=== PATIENT | male | born 1960 | race Caucasian/White ===

== ENCOUNTER → 2016-06-11 | Outpatient (CLI) | payer OTHER ==
[2016-06-11 11:18] LABS: HEMOGLOBIN 12.1 gm/dl (14.0-17.5); RED BLOOD COUNT 3.73 M/UL (4.20-5.50); WHITE BLOOD COUNT 6.1 K/UL (4.5-11.0)
[2016-06-11 11:35] LABS: BUN/CREATININE RATIO 12 (0-10)
== END ==
LOC: LAB 10:37
PROVIDERS: Internal Medicine Cardiovascular Disease
DX: L70.9 Acne, unspecified (principal); L73.2 Hidradenitis suppurativa; I25.10 Atherosclerotic heart disease of native coronary artery without angina pectoris
CPT/HCPCS: 36415; 80053; 80061; 82248; 85025; 85045

== ENCOUNTER → 2016-08-15 | Outpatient (CLI) | payer OTHER ==
[2016-08-15 10:21] LABS: HEMOGLOBIN 11.9 gm/dl (14.0-17.5); RED BLOOD COUNT 3.73 M/UL (4.20-5.50); WHITE BLOOD COUNT 6.2 K/UL (4.5-11.0)
== END ==
LOC: LAB 09:44
PROVIDERS: Dermatology
DX: L73.2 Hidradenitis suppurativa (principal)
CPT/HCPCS: 36415; 80076; 84153; 85027; 85045

== ENCOUNTER → 2020-06-04 | Outpatient (CLI) | payer OTHER ==
[~2020-06-04] MED LIST: ASPIRIN EC81 MG PO; ATORVASTATIN CA20 MG PO; COZAAR 50MG TAB50 MG PO; DAPSONE100 MG PO; DEXAMETHASONE1 MG PO; LEVAQUIN500 MG PO; LOPRESSOR 25 MG25 MG PO; NITROGLYCERIN0.4 MG SL; OMEPRAZOLE20 MG PO; PROTONIX40 M1 PO; VIAGRA50 MG PO
[2020-06-04 08:22] LABS: HEMOGLOBIN 12.6 gm/dl (14.0-17.5); RED BLOOD COUNT 3.97 M/UL (4.20-5.50); WHITE BLOOD COUNT 5.7 K/UL (4.5-11.0)
[2020-06-04 09:21] LABS: BUN/CREATININE RATIO 10 (0-10)
== END ==
LOC: LAB 07:39
PROVIDERS: Dermatology
DX: K76.9 Liver disease, unspecified (principal); R53.83 Other fatigue; R79.9 Abnormal finding of blood chemistry, unspecified; R63.4 Abnormal weight loss; E66.3 Overweight; Z79.899 Other long term (current) drug therapy
CPT/HCPCS: 36415; 80053; 80076; 85025; 85027; 85045

== ENCOUNTER → 2020-08-12 | Outpatient (CLI) | payer OTHER | LOC: KOH-I 13:05 | DX: F17.210 Nicotine dependence, cigarettes, uncomplicated (principal) | CPT/HCPCS: 71271 ==

== ENCOUNTER → 2020-09-07 | Outpatient (CLI) | payer OTHER ==
[2020-09-07 09:18] LABS: HEMOGLOBIN 13.2 gm/dl (14.0-17.5); RED BLOOD COUNT 3.96 M/UL (4.20-5.50)
[2020-09-07 09:39] LABS: BUN/CREATININE RATIO 11 (0-10)
== END ==
LOC: LAB 08:08
PROVIDERS: Dermatology
DX: K76.9 Liver disease, unspecified (principal); R53.83 Other fatigue; R63.4 Abnormal weight loss; Z79.899 Other long term (current) drug therapy
CPT/HCPCS: 36415; 80053; 85027; 85045

== ENCOUNTER → 2020-10-07 | Outpatient (CLI) | payer OTHER | LOC: HEART 5 08:53 | DX: R09.02 Hypoxemia (principal); Z87.891 Personal history of nicotine dependence | CPT/HCPCS: 94010 ==

== ENCOUNTER → 2020-12-17 | Outpatient (CLI) | payer OTHER ==
[2020-12-17 11:10] LABS: HEMOGLOBIN 12.3 gm/dl (14.0-17.5); RED BLOOD COUNT 3.7 M/UL (4.20-5.50); WHITE BLOOD COUNT 6.7 K/UL (4.5-11.0)
== END ==
LOC: LAB 10:48
PROVIDERS: Dermatology
DX: K76.9 Liver disease, unspecified (principal); R53.83 Other fatigue; R63.4 Abnormal weight loss; Z79.899 Other long term (current) drug therapy
CPT/HCPCS: 36415; 80053; 85025

== ENCOUNTER 2021-01-30 17:38 | Emergency (ER) | payer OTHER ==
[2021-01-30] MEDS ORDERED: CYCLOBENZAPRINE10 MG PO (19:06)
== END 2021-01-30 19:55 | disposition home or self-care (01) ==
LOC: ER1 17:38
DX: S43.401A Unspecified sprain of right shoulder joint, initial encounter (principal); S46.911A Strain of unspecified muscle, fascia and tendon at shoulder and upper arm level, right arm, initial encounter; S00.01XA Abrasion of scalp, initial encounter; R22.0 Localized swelling, mass and lump, head; I10 Essential (primary) hypertension; I25.2 Old myocardial infarction; Z79.82 Long term (current) use of aspirin; F17.290 Nicotine dependence, other tobacco product, uncomplicated; V43.52XA Car driver injured in collision with other type car in traffic accident, initial encounter
CPT/HCPCS: 73030; 99283

== ENCOUNTER → 2021-02-13 | Outpatient (CLI) | payer OTHER ==
[~2021-02-13] MED LIST changes: +CYCLOBENZAPRINE10 MG PO
== END ==
LOC: HEART 5 08:54
DX: I25.10 Atherosclerotic heart disease of native coronary artery without angina pectoris (principal); I51.7 Cardiomegaly; Z95.5 Presence of coronary angioplasty implant and graft
CPT/HCPCS: 78452; 93306; A9502; J2785

== ENCOUNTER 2021-03-17 09:47 | Inpatient (IN) | payer OTHER ==
[~2021-03-17] VITALS: Ht 172.7 cm; Wt 93.9 kg
[~2021-03-17 09:47] MED LIST changes: +VIAGRA100 MG PO; -VIAGRA50 MG PO
[2021-03-17 11:14] LABS: HEMOGLOBIN 11.6 gm/dl (14.0-17.5); RED BLOOD COUNT 3.62 M/UL (4.20-5.50); WHITE BLOOD COUNT 20.7 K/UL (4.5-11.0)
[2021-03-17 11:50] LABS: BUN/CREATININE RATIO 21 (0-10)
[2021-03-17] MEDS ORDERED: CYCLOBENZAPRINE10 MG PO (17:36)
[2021-03-17] MEDS ORDERED: FOLIC ACID1 MG PO (17:38)
[2021-03-18 06:53] LABS: WHITE BLOOD COUNT 18.6 K/UL (4.5-11.0)
[2021-03-18 06:56] LABS: HEMOGLOBIN 9.4 gm/dl (14.0-17.5)
--- NOTE | 2021-03-18 11:07 | NUR ---
DR ESPINOZA CALLED PT WHEEZING AND OXYGEN IS 88/89% ON 4 LITERS. NEW ORDERS NOTED WITH NEB TREATMENTS AND AN ORDER TO TITRATE OXYGEN TO MEET NEEDS.
[2021-03-18 12:18] LABS: BORDETELLA PARAPERTUSSIS Not Detected (Not Detectd); BORDETELLA PERTUSSIS Not Detected (Not Detectd); CHLAMYDIA PNEUMONIAE Not Detected (Not Detectd); CORONAVIRUS HKU1 Not Detected (Not Detectd); CORONAVIRUS NL63 Not Detected (Not Detectd); CORONAVIRUS OC43 Not Detected (Not Detectd); CORONOAVIRUS 229E Not Detected (Not Detectd); HUMAN RHINOVIRUS/ENTEROVIRUS Not Detected (Not Detectd); INFLUENZA A Not Detected (Not Detectd); INFLUENZA B Not Detected (Not Detectd); MYCOPLASMA PNEUMONIAE Not Detected (Not Detectd); PARAINFLUENZA VIRUS 1 Not Detected (Not Detectd); PARAINFLUENZA VIRUS 2 Not Detected (Not Detectd); PARAINFLUENZA VIRUS 3 Not Detected (Not Detectd); PARAINFLUENZA VIRUS 4 Not Detected (Not Detectd); RESPIRATORY SYNCYTIAL VIRUS Not Detected (Not Detectd)
[2021-03-18 13:50] LABS: HUMAN METAPNEUMOVIRUS DETECTED (Not Detectd); SARS-CoV-2 NOT DETECTED (Not Detectd)
--- NOTE | 2021-03-18 18:11 | NUR ---
PT HAS RESTED TODAY, HIS OXYGEN REMAINS GREATER THAN 92% ON 5L N/C.HE DENIES NEEDS OR C/O AT THSI TIME.
[2021-03-19 06:24] LABS: HEMOGLOBIN 9.2 gm/dl (14.0-17.5); RED BLOOD COUNT 3.01 M/UL (4.20-5.50)
[2021-03-20 06:39] LABS: HEMOGLOBIN 8.6 gm/dl (14.0-17.5); RED BLOOD COUNT 2.87 M/UL (4.20-5.50); WHITE BLOOD COUNT 18.5 K/UL (4.5-11.0)
[2021-03-21] MEDS ORDERED: BUDESONIDE0.5 MG/2 M NEB (11:33)
[2021-03-21] MEDS ORDERED: ALBUTEROL2.5 MG/3 M INH (11:33)
[2021-03-21] MEDS ORDERED: LEVOFLOXACIN500 MG PO (11:33)
[2021-03-21] MEDS ORDERED: PREDNISONE 10 M10 MG PO (11:33)
--- NOTE | 2021-03-21 12:35 | NUR ---
CONTACTED ABOUT BLOOD GAS RESULTS AT THIS TIME AND HE STATES THAT PATIENT WILL BE FINE WITHOUT HOME O2. HE STATES THAT PO2 MUST BE BELOW 55 ON BLOOD GAS. CINEMA OPERATOR MADE AWARE.
[2021-03-23 16:13] LABS: ASPERGILLUS FLAVUS Negative (Neg:<1:1); ASPERGILLUS FUMIGATUS Negative (Neg:<1:1); ASPERGILLUS NIGER Negative (Neg:<1:1)
== END 2021-03-21 13:37 | disposition home or self-care (01) | DRG 193 ==
LOC: ER1 09:47 → M/S 16:24 → CDU 16:24 → M/S 19:13
PROVIDERS: Emergency Medicine; Physician Assistant Medical; ADMIT Internal Medicine Infectious Disease
PROC: 3E0333Z Introduction of Anti-inflammatory into Peripheral Vein, Percutaneous Approach (ICD-10-PCS; principal; 2021-03-17)
DX: J12.3 Human metapneumovirus pneumonia (principal); J96.01 Acute respiratory failure with hypoxia; M62.82 Rhabdomyolysis; N18.30 Chronic kidney disease, stage 3 unspecified; N17.9 Acute kidney failure, unspecified; D58.9 Hereditary hemolytic anemia, unspecified; Z20.822 Contact with and (suspected) exposure to COVID-19; I12.9 Hypertensive chronic kidney disease with stage 1 through stage 4 chronic kidney disease, or unspecified chronic kidney disease; E78.5 Hyperlipidemia, unspecified; J45.909 Unspecified asthma, uncomplicated; K21.9 Gastro-esophageal reflux disease without esophagitis; F17.210 Nicotine dependence, cigarettes, uncomplicated; I25.10 Atherosclerotic heart disease of native coronary artery without angina pectoris; Z95.5 Presence of coronary angioplasty implant and graft; Z79.01 Long term (current) use of anticoagulants; Z79.82 Long term (current) use of aspirin; I25.2 Old myocardial infarction; Z81.1 Family history of alcohol abuse and dependence; Z83.3 Family history of diabetes mellitus
CPT/HCPCS: 0240U; 36415; 36600; 71045; 80048; 80053; 82550; 82553; 82803; 83735; 83874; 83880; 84484; 85025; 85027; 86606; 86612; 87278; 87633; 93005; 94640; 94760; 96374; 96375; 99285; J0456; J0696; J1100; J1650; J1956; J2920; J7030; Q9967

== ENCOUNTER → 2021-06-22 | Outpatient (CLI) | payer OTHER ==
[~2021-06-22] MED LIST changes: +ALBUTEROL2.5 MG/3 M INH; +BUDESONIDE0.5 MG/2 M NEB; +FOLIC ACID1 MG PO; +LEVOFLOXACIN500 MG PO; +PREDNISONE 10 M10 MG PO
== END ==
LOC: US 16:00
DX: N18.31 Chronic kidney disease, stage 3a (principal)

== ENCOUNTER → 2021-08-02 | Outpatient (CLI) | payer OTHER ==
[2021-08-02 15:16] LABS: HEMOGLOBIN 13.2 gm/dl (14.0-17.5); RED BLOOD COUNT 3.92 M/UL (4.20-5.50); WHITE BLOOD COUNT 8.4 K/UL (4.5-11.0)
[2021-08-02 15:34] LABS: BUN/CREATININE RATIO 9 (0-10)
== END ==
LOC: CT 14:43
PROVIDERS: Physician Assistant
DX: R93.89 Abnormal findings on diagnostic imaging of other specified body structures (principal)
CPT/HCPCS: 36415; 74160; 80053; 85025; Q9967

== ENCOUNTER → 2021-08-30 | Outpatient (CLI) | payer OTHER ==
[2021-08-30 15:44] LABS: HEMOGLOBIN 12.8 gm/dl (14.0-17.5); RED BLOOD COUNT 4.01 M/UL (4.20-5.50)
== END ==
LOC: LAB 15:12
PROVIDERS: Dermatology
DX: L70.9 Acne, unspecified (principal); L73.2 Hidradenitis suppurativa
CPT/HCPCS: 36415; 80076; 85025; 85045

== ENCOUNTER → 2021-11-25 | Outpatient (CLI) | payer OTHER | LOC: RAD 08:28 | DX: M54.2 Cervicalgia (principal) | CPT/HCPCS: 72040 ==

== ENCOUNTER → 2021-12-05 | Outpatient (CLI) | payer OTHER ==
[2021-12-05 16:08] LABS: HEMOGLOBIN 12.2 gm/dl (14.0-17.5); RED BLOOD COUNT 3.84 M/UL (4.20-5.50); WHITE BLOOD COUNT 11.9 K/UL (4.5-11.0)
[2021-12-08 17:08] LABS: G-6-PD, QUANT 368 (127-427); RBC 3.87 x10E6/uL (4.14-5.80)
== END ==
LOC: LAB 15:19
PROVIDERS: Dermatology
DX: L70.9 Acne, unspecified (principal); R74.01 Elevation of levels of liver transaminase levels; R53.81 Other malaise; Z79.899 Other long term (current) drug therapy
CPT/HCPCS: 36415; 80076; 82955; 85025; 85027